=== PATIENT | male | born 1955 | race Caucasian/White ===

== ENCOUNTER 2025-05-31 13:33 | Observation (INO) | payer MEDICARE, BC ==
[~2025-05-31] VITALS: Ht 182.9 cm; Wt 104.8 kg
[2025-05-31 14:13] LABS: BASO # 0.1 10^3/uL (0.0-0.2); BASO % 1.1 % (0.0-1.0); EOS # 0.1 10^3/uL (0.0-0.5); EOS % 1.1 % (0.0-3.0); LYMPH # 1.2 10^3/uL (1.5-5.0); LYMPH % 17.3 % (24.0-44.0); MONO # 0.5 10^3/uL (0.0-0.8); MONO % 6.8 % (2.0-8.0); NEUTROPHILS # 5.1 10^3/uL (1.5-8.5); NEUTROPHILS % 72.6 % (36.0-66.0); PLATELET COUNT, AUTOMATED 171 10^3/uL (150-450)
[2025-05-31 14:37] LABS: ALT/SGPT 18.0 U/L (7.0-40); AST/SGOT 23.0 U/L (<34); CALCIUM LEVEL 8.7 MG/DL (8.3-10.6); CARBON DIOXIDE LEVEL 24.0 MMOL/L (20-31); CHLORIDE LEVEL 99.0 MMOL/L (98-107); CREATININE FOR GFR 1.02 MG/DL (0.70-1.30); GLOMERULAR FILTRATION RATE 78.6 (>42); POTASSIUM SERUM 4.5 MMOL/L (3.5-5.1); SODIUM LEVEL 137.0 MMOL/L (136-145)
[2025-05-31 15:54] LABS: ESTIMATED AVERAGE GLUCOSE 157.0 MG/DL (60-110)
[2025-05-31] MEDS ORDERED: ISOVUE-370 76% 100 ML VIAL As Ordered ONE (16:54)
[2025-05-31] MEDS: LOSARTAN 50 MG TABLET PO ONE (17:37)
[2025-05-31] MEDS: FUROSEMIDE 40 MG/4 ML VIAL IV ONE (17:37)
[2025-05-31] MEDS: CHLORTHALIDONE 25 MG TAB PO ONE (18:03)
[2025-05-31] MEDS ORDERED: CHLO125TA PO (18:56)
[2025-05-31] MEDS ORDERED: LOSA100T46 PO (18:56)
[2025-05-31] MEDS ORDERED: METF500T13 PO (18:57)
[2025-05-31] MEDS ORDERED: HOME MED LIST COMPLETE! XX SCH (21:00)
[2025-05-31] MEDS: LABETALOL 100 MG/20 ML VIAL IV STA (21:04)
[2025-05-31] MEDS ORDERED: MOM 30 ML SUSPENSION UDC PO PRN (22:40)
[2025-05-31] MEDS ORDERED: LABETALOL 100 MG/20 ML VIAL IV PRN (22:40)
[2025-06-01] VITALS (8 sets, daily range): BP systolic 137–185; BP diastolic 70–92; TEMP 97–98; O2SAT 93–95
[2025-06-01 07:03] LABS: PLATELET COUNT, AUTOMATED 159 10^3/uL (150-450)
[2025-06-01 07:42] LABS: ALT/SGPT 15.0 U/L (7.0-40); AST/SGOT 16.0 U/L (<34); CALCIUM LEVEL 9.1 MG/DL (8.3-10.6); CARBON DIOXIDE LEVEL 28.0 MMOL/L (20-31); CHLORIDE LEVEL 98.0 MMOL/L (98-107); CREATININE FOR GFR 1.2 MG/DL (0.70-1.30); GLOMERULAR FILTRATION RATE 64.7 (>42); POTASSIUM SERUM 4.4 MMOL/L (3.5-5.1); SODIUM LEVEL 139.0 MMOL/L (136-145)
[2025-06-01] MEDS: TIOTROPIUM BROM 2.5MCG/ACTUATION 4GM INH INH SCH (08:00)
[2025-06-01] MEDS ORDERED: LOSA100T46 PO (08:49)
[2025-06-01] MEDS ORDERED: CHLO125TA PO (08:49)
[2025-06-01] MEDS ORDERED: METF-839 PO (08:49)
[2025-06-01] MEDS: ENOXAPARIN 40 MG/0.4 ML SYRINGE (J1650 PER 10MG) SC SCH (09:00)
[2025-06-01] MEDS: DOCUSATE SODIUM 100 MG CAPSULE PO SCH (09:00)
[2025-06-01] MEDS: DOXYCYCLINE HYCLATE 100 MG TABLET PO SCH (09:29)
[2025-06-01] MEDS: amLODIPine 5 MG TAB PO SCH (09:29)
[2025-06-01] MEDS ORDERED: HOME MED LIST COMPLETE! XX SCH (09:40)
[2025-06-01] MEDS: **hydrALAZINE HCL** 25 MG TAB PO SCH (12:00)
[2025-06-01] MEDS: ALBUTEROL 90 MCG/ACT 8 GM HFA INHALER INH SCH (12:21)
[2025-06-02 03:28] VITALS: BP 144/80; TEMP 97; O2SAT 94
[2025-06-02 07:03] LABS: BASO # 0.1 10^3/uL (0.0-0.2); BASO % 1.3 % (0.0-1.0); EOS # 0.2 10^3/uL (0.0-0.5); EOS % 2.2 % (0.0-3.0); LYMPH # 2.4 10^3/uL (1.5-5.0); LYMPH % 26.2 % (24.0-44.0); MONO # 0.8 10^3/uL (0.0-0.8); MONO % 8.3 % (2.0-8.0); NEUTROPHILS # 5.5 10^3/uL (1.5-8.5); NEUTROPHILS % 60.8 % (36.0-66.0); PLATELET COUNT, AUTOMATED 162 10^3/uL (150-450)
[2025-06-02 07:23] VITALS: BP 133/85; TEMP 97.1; O2SAT 95
[2025-06-02 07:33] LABS: CALCIUM LEVEL 9.1 MG/DL (8.3-10.6); CARBON DIOXIDE LEVEL 25.0 MMOL/L (20-31); CHLORIDE LEVEL 99.0 MMOL/L (98-107); CHOLESTEROL LEVEL 139.0 MG/DL (<200); CHOLESTEROL RISK RATIO 3.92 (<5); CREATININE FOR GFR 1.15 MG/DL (0.70-1.30); GLOMERULAR FILTRATION RATE 68.0 (>42); LDL CHOLESTEROL 72.4 MG/DL (<100); NON-HDL-C 103.6 MG/DL; POTASSIUM SERUM 4.2 MMOL/L (3.5-5.1); SODIUM LEVEL 136.0 MMOL/L (136-145); TRIGLYCERIDES LEVEL 156.0 MG/DL (<150)
[2025-06-02 10:06] VITALS: BP 133/85
[2025-06-02] MEDS ORDERED: VENTAER INH (10:22)
[2025-06-02] MEDS ORDERED: DOXY100T PO (10:22)
[2025-06-02] MEDS ORDERED: METF500T13 PO (10:22)
[2025-06-02] MEDS ORDERED: AMLO1TAB24 PO (10:22)
[2025-06-02] MEDS ORDERED: SPIR12.9 INH (10:22)
[2025-06-02] MEDS ORDERED: LISI10TA22 PO (10:22)
== END 2025-06-02 11:28 | disposition home or self-care (01) ==
LOC: EDBD 13:33 → M ED 13:33 → M ED INP 13:34 → M PCU 06-01 01:30
PROVIDERS: ADMIT Family Medicine; ATTEND Family Medicine
DX: I16.0 Hypertensive urgency (principal); F17.210 Nicotine dependence, cigarettes, uncomplicated; E11.9 Type 2 diabetes mellitus without complications; J43.2 Centrilobular emphysema; E66.9 Obesity, unspecified; N26.1 Atrophy of kidney (terminal); Z91.030 Bee allergy status
CPT/HCPCS: 36415; 71045; 71275; 80048; 80053; 80061; 80076; 83036; 84484; 85025; 85027; 87486; 87581; 87633; 87798; 93005; 93041; 94640; 94760; 96374; 96375; 99285; G0378; J1920; J1938; Q9967